=== PATIENT | female | born 1990 | race Caucasian/White ===

== ENCOUNTER 2020-04-20 09:53 | Observation (INO) ==
[2020-04-20 10:51] LABS: Creatinine Urine Random 22.5 mg/dl; Protein Creatinine Ratio Urine 0.3 (0-0.2); Total Protein Urine Random 6.9 mg/dl (0-11.9)
[2020-04-20 10:51] LABS: Basophils # (auto) 0.01 K/uL (0-0.2); Basophils % (auto) 0.1 %; Eosinophils # (auto) 0.14 K/uL (0-0.5); Eosinophils % (auto) 1.4 %; Hematocrit (blood only) 28.4 % (37-47); Hemoglobin 8.8 g/dL (12.0-16.0); Immature Granulocytes # (auto) 0.04 K/uL (0.00-0.02); Immature Granulocytes % (auto) 0.4 %; Lymphocytes # (auto) 1.27 K/uL (1.2-3.4); Lymphocytes % (auto) 12.5 %; Mean Corpuscular Hemoglobin 22.1 pg (25-34); Mean Corpuscular Volume 71.4 fL (80-100); Mean Platelet Volume 9.9 fL (7.4-10.4); Monocytes # (auto) 0.74 K/uL (0.11-0.59); Monocytes % (auto) 7.3 %; Neutrophils # (auto) 7.98 K/uL (1.4-6.5); Neutrophils % (auto) 78.3 %; Platelet Count 213 K/uL (130-400); RDW Coefficient of Variation 16.1 % (11.5-14.5); RDW Standard Deviation 42.6 fL (36.4-46.3); Red Blood Count 3.98 M/uL (4.2-5.4); White Blood Count 10.18 K/uL (4.8-10.8)
--- NOTE | 2020-04-20 11:04 | History & Physical Report ---
Date of Service April 20, 2020 Assessment & Plan (1) Chronic hypertension affecting : (2) Obesity affecting : (3) Headache: will plan labs and urine tests to further assess for superimposed preeclampsia. bps are elevated but not severe range. even the initial one's. offer oxycodone for butcher but pt declines. unclear picture at this time but will await labs to further characterize. couple aware. fhts categ 1. History of Present Illness Chief Complaint: sent from home with headache and elevated bps. Primary Care Provider: Shama Roper PA-C 30yo at 31 +wks kayley presents to L&D with above cc. She notes having BUTCHER and on and off right upper quad pain and then decided to take her home bp. She has a cuff. They were elevated in the 190/130 range per pt. When she called into the office with these details she was advised to come to L&D. She currently does not have ruq pain. No epig pain. BUTCHER still there like vice circumferentially around her head. She took tylenol already. She denies n/v. No rom, vb. No ctx. +FM. She is here with her partner. Her pnc is complicated by 1. CHTN, has been on labetalol for >1 yr and had recent dose adjustment last week by our providers and on monday by PCP. Now taking 300mg, 300mg and 200mg daily in doses. She notes the headaches have preceded the use of more labetalol. 2. Obesity, h/o gastric bypass 3. GBS + --trt in labor PNL RH Pos, ri, gbs pos urine OBH: g1 GYNH: nl paps, no stds Allergies Allergy/AdvReac Type Severity Reaction Status Date / Time amoxicillin Allergy Unknown gi upset Verified 04/14/20 09:43 clavulanic acid Allergy Unknown gi upset Verified 04/14/20 09:43 latex Allergy Unknown rash, Verified 04/14/20 09:43 Penicillins Allergy Unknown hives and Verified 04/14/20 09:43 vomiting Sulfa (Sulfonamide Allergy Unknown gi upset Verified 04/14/20 09:43 Antibiotics) throwing up Home Medications Home Medications Medication Instructions Recorded Confirmed Type ALBUTEROL HFA (VENTOLIN HFA) 2 - 4 puff INHALATION Q6H PRN #1 05/09/16 04/14/20 History inhaler prenat.vits,nataly,[id number]-przqd 1 tab PO DAILY 11/01/19 04/14/20 History aspirin 81 mg tablet,delayed 81 mg PO DAILY 12/03/19 04/14/20 History release docusate sodium PO PRN 03/03/20 04/14/20 History labetalol 100 mg tablet 200 mg PO TID 30 Days #180 tab 03/21/20 04/14/20 Rx Patient History Medical History (Updated 04/20/20 @ 11:03 by Diana Macdonald MD, FACOG) Encounter for anatomic survey Hx of varicella Hypertension Supervision of normal intrauterine in primigravida Surgical History (Updated 11/08/19 @ 15:45 by Minnie Ashley) History of Vaibhav-en-Y gastric bypass S/P cholecystectomy Family History (System 11/08/19 @ 15:45 by Minnie Ashley) Grandfather Thyroid disease Hypertension Father Hypertension Mother Hypertension Sister Hypertension Social History (System 11/08/19 @ 15:45 by Minnie Ashley) Smoking Status: Never smoker Hx Alcohol Use: No Hx Substance Use: No Preferred Language: Khmer Beliefs That Will Affect Care: None marital status: marital status details: Yomi Costa (30) [phone] Current Living Situation: Spouse Current Living Situation Comment: lives with spouse, 2 dogs, 1 cat, does not change litter current occupational status: employed current occupation: [employer] Review of Systems per hpi Physical Exam Constitutional: WD/WN, vitals as above not ill appearing Respiratory: normal respiratory effort, lungs clear to auscultation Cardiovascular: Rate/Rhythm: regular rate and regular rhythm Gastrointestinal (Abdomen): Percussion/Palpation: abdomen soft (gravid); abdomen nontender and no guarding No RUQ or epig tenderness Musculoskeletal: nt calves. no edema Neurologic: DTRs patellar +1, no clonus Psychiatric: A+Ox3, euthymic affect Eye Contact: good eye contact Genitourinary: OB Exam Monitor Tracing: + external FHT monitor used (135 mod variability reactive), + external uterine monitor used (no ctx), + category I and + normal FHT variability Results & Data ([place]) Vital Signs (Past 12 Hours) Vital Signs Pulse BP 04/20/20 10:47 88 140/85 04/20/20 10:37 87 149/95 H 04/20/20 10:27 84 151/97 H 04/20/20 10:17 88 151/101 H Coding Level of Care Code None Diagnoses Chronic hypertension affecting O10.919 Obesity affecting O99.210 Headache R51.9
[2020-04-20 11:09] LABS: Alanine Aminotransferase 24 U/L (12-78); Albumin Level 2.5 gm/dl (3.4-5.0); Aspartate Aminotransferase 19 U/L (15-37); BUN Creatinine Ratio 15.8 (10-20); Blood Urea Nitrogen 8 mg/dl (7-18); Calcium 8.6 mg/dl (8.5-10.1); Carbon Dioxide 24 mmol/L (21-32); Chloride 107 mmol/L (98-107); Est GFR (African American) 145.6; Est GFR (Non-African American) 125.6; Glucose 91 mg/dl (70-99); Potassium 3.7 mmol/L (3.5-5.1); Sodium 138 mmol/L (136-145)
[2020-04-20 11:10] LABS: Albumin Globulin Ratio 0.7 (0.9-2); Alkaline Phosphatase 103 U/L (45-117); Bilirubin,Total 0.5 mg/dl (0.2-1); Globulin 3.8 gm/dl (2.5-4.0); Total Protein 6.3 gm/dl (6.4-8.2)
[2020-04-20] MEDS ORDERED: Nursing to Pharmacy Communication SCH (11:45)
[2020-04-20] MEDS ORDERED: BETAMETH SOD PHOS/ACETATE IA 6 MG/ML IM STA (12:18)
[2020-04-20] MEDS ORDERED: METOCLOPRAMIDE HCL 10 MG TABLET PO STA (12:18)
--- NOTE | 2020-04-20 12:37 | Obstetrical Progress Note ---
Date of Service April 20, 2020 Assessment & Plan (1) Chronic hypertension affecting : (2) Obesity affecting : (3) Group beta Strep positive: (4) Anemia affecting , antepartum: (5) Headache: spoke to [facility] re: pt presentation. not clear to me or they how her BUTCHER plays into poss dx of superimposted preeclampsia. Bps not severe range. Urine protein needs to be further evaluated. Given BUTCHER, prudent to watch as observe and see if she stabilizes or worsens. Discussed with [facility] her adjustments of her meds thus far. Also discussed concern for need for delivery given her presentation thus far and they agree steroids would be indicated. So for now, will observe pt, get 24hr urine and give betameth now and in 24hr. watch BUTCHER and see how bp trend dose. FHTs categ 1 and so will plan fhts q shift and NST qd and prn. Patient and spouse aware and given chance to ask questions and deny further questions at this time. Patient is hungry and will feed and plan her current routine of labetalol. If able to be outpt after tomorrow, will need to set up consult with [facility] next week where growth u/s due and pt is agreeable. Of note, pt awaiting call to begin Iron IV as she is quite anemic and is supposed to start them wed. She is unable to tolerate po iron due to gastric bypass and is known to our hematologists for planned infusion. Admission and Anticipated Discharge Date Admission Date: April 20, 2020 Subjective pt notes still with headache but less severe. no other complaints. Review of Systems Review of Systems: per hpi Physical Exam Constitutional: WD/WN, vitals as above Genitourinary: OB Exam Monitor Tracing: + external FHT monitor used (135 mod variability), + external uterine monitor used (no ctx), + category I and + normal FHT variability Results & Data ([facility]) Vital Signs (Past 12 Hours) Vital Signs Temp Pulse Resp BP 04/20/20 11:30 18 04/20/20 11:00 18 04/20/20 10:47 88 140/85 04/20/20 10:37 87 149/95 H 04/20/20 10:27 84 151/97 H 04/20/20 10:17 88 151/101 H 04/20/20 10:10 98.2 F 20 PG Care Time/CCT Total # of Minutes Spent Total Time Spent: 60 Total Time Spent with Patient: Total time spent is greater than 50% in coordin ation of care (as documented) at patient's floor/unit and/or counseling patient: See orignal H&P notes and then called MFM and then came back and spoke to pt about all results. Coding Level of Care Code 82594 OBS Care - Level 3 Diagnoses Chronic hypertension affecting O10.919 Obesity affecting O99.210 Group beta Strep positive B95.1 Anemia affecting , antepartum O99.019 Headache R51.9 CPT Codes Misx Procedure Codes - 78428 NST: 74867 NST ([id number]) Time Spent (min) 60 [employer] Miscellaneous Codes Misx Procedure Codes 58197 NST
[2020-04-20] MEDS ORDERED: ALBUTEROL HFA 8 GM INHALER INH PRN (12:43)
[2020-04-20] MEDS ORDERED: LABETALOL HCL 300 MG TAB PO SCH (13:00)
[2020-04-20] MEDS: LABETALOL HCL 300 MG TAB PO SCH (13:05)
[2020-04-20] MEDS ORDERED: LABETALOL HCL 200 MG TAB PO SCH (21:00)
[2020-04-21] MEDS ORDERED: CALCIUM CARBONATE 500 MG CHEWABLE TAB PO PRN (03:37)
[2020-04-21] MEDS ORDERED: CALCIUM CARBONATE 500 MG CHEWABLE TAB ONE (03:44)
--- NOTE | 2020-04-21 07:22 | Obstetrical Progress Note ---
Date of Service April 21, 2020 Assessment & Plan (1) Headache: Rosa is a 30yo who is 31-6/7 WGA, notably complicated by cHTN on labetalol, obesity with h/o gastric bypass, and anemia who presented to the Labor and Delivery floor on 04/20/20 with significantly elevated BPs, BUTCHER, and RUQ pain, initially concerning for superimposed preeclampsia. Urine protein/Cr ratio subsequently returned borderline-diagnostic at 0.3, with other PIH labs WNL (with exception of known anemia). FHTs category I on arrival. Headache: Resolved - Clinically, patient presented with significant BUTCHER that was co-occurring with elevated BPs and RUQ pain in the range of 150s/90s - (2) Chronic hypertension affecting : (3) H/O gastric bypass: (4) : (5) Group beta Strep positive: Admission and Anticipated Discharge Date Admission Date: April 20, 2020 Subjective NAEO. Patient reports feeling well this morning and like her headache has nearly completely resolved. She wonders if this could be due to brand differences in the labetalol medications administered here versus what she uses at home (received same dosage as she does at home). No changes in vision. Abdominal pain has been resolved since arrival yesterday. Appetite is good, has been able to eat. No chest pain, palpitations, or shortness of breath. No leg pain or swelling. +FM. No contractions. No LOF. No vaginal bleeding. Review of Systems Review of Systems: As per HPI Physical Exam Constitutional: Well-appearing 30-year-old gravid woman who is lying bacck in her hospital bed, relaxed, and speaking in full sentences without difficulty. She is in NAD. Alert and oriented fully throughout our conversation. Respiratory: normal respiratory effort, lungs clear to auscultation Cardiovascular: RRR, no murmur, no edema No appreciable edema in the lower extremities. Homens negative. Gastrointestinal (Abdomen): Gravid abdomen. Nontender to palpation throughout all abdominal quadrants. Hager's negative. Results & Data ([facility]) Vital Signs (Past 12 Hours) Vital Signs Temp Pulse Pulse Pulse Resp BP BP 04/21/20 03:40 36.8 C 86 18 04/20/20 23:15 36.9 C 85 18 144/80 H 04/20/20 20:51 87 18 150/100 H 04/20/20 19:30 37.0 C 83 18 148/83 H BP 04/21/20 03:40 128/77 04/20/20 23:15 04/20/20 20:51 04/20/20 19:30
--- NOTE | 2020-04-21 08:05 | Obstetrical Progress Note ---
Date of Service April 21, 2020 Assessment & Plan (1) Chronic hypertension affecting : (2) Obesity affecting : (3) Headache: (4) Anemia affecting , antepartum: doing well overnight. bps normal. but last few not sitting up, will get sitting up in chair bp this am. will need nst this am. plan to repeat labs this am and 24hr urine complete at 950pm. next dose of roids around noon. if remains stable/labs/bp will likely d/c home and plan mfm consult next week. due to her distance to our office prefers to see mfm at [place] and we will work to arrange. at times her bp are labile. her headache improved and enc to try to use benadryl to help in future. Admission and Anticipated Discharge Date Admission Date: April 20, 2020 Subjective pt doing well. feels great. no headache. no visual change. eating, voiding, ambulating in room without problem. feels her swelling is less. she denies pain in abdomen, no ctx. no rom or vb. +FM. collecting 24hr urine Review of Systems Review of Systems: per hpi Physical Exam Constitutional: WD/WN, vitals as above Gastrointestinal (Abdomen): soft gravid nt, obese, no ruq or epigastric pain. Musculoskeletal: trace edema Neurologic: grossly normal Results & Data ([facility]) Vital Signs (Past 12 Hours) Vital Signs Temp Pulse Pulse Resp BP BP 04/21/20 03:40 98.2 F 86 18 128/77 04/20/20 23:15 98.4 F 85 18 144/80 H 04/20/20 20:51 87 18 150/100 H PG Care Time/CCT Total # of Minutes Spent Total Time Spent with Patient: Total time spent is greater than 50% in coordination of care (as documented) at patient's floor/unit and/or counseling patient: Coding Level of Care Code 80896 Subseq Obs Care Lvl 2 Diagnoses Chronic hypertension affecting O10.919 Obesity affecting O99.210 Headache R51.9 Anemia affecting , antepartum O99.019
[2020-04-21] MEDS: LABETALOL HCL 300 MG TAB PO SCH ×2 (08:20→12:36)
--- NOTE | 2020-04-21 08:56 | Communication Note ---
Date of Service: April 21, 2020 Patient was met this morning in her room along with Dr. Macdonald as part of signout / change-over. Pt is aware of BMTZ second dose today, finishing the 24hr urine collection process this morning, and ongoing BP monitoring throughout. The current plan per [facility] MFM and Dr. Macdonald is for discharge to outpatient management once those items are completed, assuming no major clinical changes. Outpatient follow up in OB office is arranged for tomorrow and IV Iron infusions are set to begin soon as well due to her anemia. She will be managed as cHTN with li perimposed mild preeclampsia based on the data collected thus far, including a spot pr/cr ratio of 0.3, though it is known that she has a mildly elevated baseline protein level in her urine. The patient achieved relief of her headache via benadryl and reglan as suggested by MFM at [facility] yesterday. The majority of her BP's have been in the mild-HTN range, which is her typical level given existing cHTN. Rare severe range BP's have been taken at times when she was anxious and/or positioned in a nonstandard way, and improved on repeat with patient seated [id number]. She has no other signs or symptoms of severe-level hypertensive disease at this time. The patient was also advised during the prior shift that she should establish in person with an M team, assuming she is able to continue outpatient care and maintain this , so that there would be a relationship in place should she require transfer to a tertiary care facility for an early delivery due to her medical conditions. She prefers [facility] due to the longer driving distance to [place]. She is aware that the recommendations so far have come from phone consultation with [facility] and that [facility]'s team may recommend different management; she is accepting of that possibility.
[2020-04-21] MEDS ORDERED: ASPIRIN 81 MG ECTAB PO SCH (09:00)
[2020-04-21] MEDS ORDERED: PRENATAL VITAMIN 1 TAB PO SCH (09:00)
[2020-04-21 10:17] LABS: Basophils # (auto) 0.01 K/uL (0-0.2); Basophils % (auto) 0.1 %; Eosinophils # (auto) 0.02 K/uL (0-0.5); Eosinophils % (auto) 0.1 %; Hematocrit (blood only) 28.9 % (37-47); Hemoglobin 8.5 g/dL (12.0-16.0); Immature Granulocytes # (auto) 0.06 K/uL (0.00-0.02); Immature Granulocytes % (auto) 0.4 %; Lymphocytes # (auto) 1.43 K/uL (1.2-3.4); Lymphocytes % (auto) 9.4 %; Mean Corpuscular Hemoglobin 21.3 pg (25-34); Mean Corpuscular Hgb Conc 29.4 g/dL (32-36); Mean Corpuscular Volume 72.4 fL (80-100); Mean Platelet Volume 10.4 fL (7.4-10.4); Monocytes # (auto) 1.19 K/uL (0.11-0.59); Monocytes % (auto) 7.8 %; Neutrophils # (auto) 12.49 K/uL (1.4-6.5); Neutrophils % (auto) 82.2 %; Platelet Count 239 K/uL (130-400); RDW Coefficient of Variation 16.3 % (11.5-14.5); RDW Standard Deviation 43.1 fL (36.4-46.3); Red Blood Count 3.99 M/uL (4.2-5.4)
[2020-04-21 10:50] LABS: RBC Morphology Unremarkable
[2020-04-21 10:51] LABS: Alanine Aminotransferase 22 U/L (12-78); Albumin Level 2.4 gm/dl (3.4-5.0); Aspartate Aminotransferase 13 U/L (15-37); BUN Creatinine Ratio 10.4 (10-20); Blood Urea Nitrogen 7 mg/dl (7-18); Calcium 8.8 mg/dl (8.5-10.1); Carbon Dioxide 22 mmol/L (21-32); Chloride 107 mmol/L (98-107); Creatinine Clr Calc Pharmacy 158.9 ml/min; Est GFR (African American) 135.5; Est GFR (Non-African American) 116.9; Glucose 131 mg/dl (70-99); Potassium 3.6 mmol/L (3.5-5.1); Sodium 137 mmol/L (136-145)
[2020-04-21 10:53] LABS: Albumin Globulin Ratio 0.6 (0.9-2); Alkaline Phosphatase 101 U/L (45-117); Bilirubin Direct < 0.1 mg/dl (0-0.2); Bilirubin,Total 0.3 mg/dl (0.2-1); Globulin 3.8 gm/dl (2.5-4.0); Total Protein 6.2 gm/dl (6.4-8.2)
[2020-04-21] MEDS ORDERED: BETAMETH SOD PHOS/ACETATE IA 6 MG/ML IM SCH (12:30)
[2020-04-21 13:20] LABS: Patient Weight 127.1 kg
[2020-04-21 13:45] LABS: Urine Creatinine 31.5 mg/dl
--- NOTE | 2020-04-21 14:09 | Discharge Summary ---
Date of Service April 21, 2020 Admission HPI Per Admitting Provider 30yo at 31 +wks kayley presents to L&D with BUTCHER and increased BP at home. Hospital Course (1) Chronic hypertension affecting : Patient admitted and d/w MFM at [facility] [place] [place]. Observed for 24 hours to allow collection of urine and BMTZ x2 doses to be administered. Labs reassuring. Urine protein 300mg = mild preeclampsia superimposed on her cHTN. BUTCHER was relieved by benadryl and reglan. BP stabilized in mild HTN range, typical for this patient. Patient feeling much better and D/C to home on HD#2 with outpatient f/u the next day. Coding Level of Care Code 64819 OBS Care - Discharge Diagnoses Chronic hypertension affecting O10.919
== END 2020-04-21 14:20 | disposition home or self-care (01) ==
LOC: OPB 09:53 → 4S1 09:53 → 4S2 17:44

== ENCOUNTER 2020-05-28 07:39 | Inpatient (IN) ==
[2020-05-28] MEDS ORDERED: OXYTOCIN 30 UNITS/500 ML BAG IV PRN ×3 (07:52→19:36)
[2020-05-28] MEDS ORDERED: ceFAZolin 1000MG 1,000 MG/7.5 ML SYR IV PRN (07:56)
[2020-05-28] MEDS ORDERED: PATIENT'S HEIGHT AND/OR WEIGHT NEEDED SCH (08:15)
[2020-05-28] MEDS ORDERED: ceFAZolin 2000MG 2,000 MG/15 ML SYR IV ONE (08:15)
[2020-05-28] MEDS: LACTATED RINGER'S 1,000 ML IV PRN ×6 (08:17→16:58)
--- NOTE | 2020-05-28 08:19 | History & Physical Report ---
Date of Service May 28, 2020 Assessment & Plan (1) Group beta Strep positive: (2) Obesity affecting : (3) Chronic hypertension affecting : Admission and Anticipated Discharge Date Admission Date: May 28, 2020 Planning induction for poorly controlled chtn. Labs pending. ancef for gbs +. Plan pit induction with arom as needed. epidural on demand. fetus overall reassuring. Anticipate . Pressures are good right now and no s/s of worsening disease at this point. History of Present Illness Chief Complaint: induction for chtn Primary Care Provider: Shama Roper PA-C Patient is a 30yowf at 37 1/7 weeks who presents to labor and delivery for induction for chtn. Patient's has been complicated by difficult to control chtn in her . Has needed several increases in her dosage of labetolol. Started on 100mg tid, now on 300mg/300mg/200mg. Hospitalized for control and got steroids. Had consult at [facility] for evaluation after that. Although they did not think she had preeclampsia at the time, they did recommend treating her as if she did with weekly labs, bp checks and nsts with growth ultrasounds. These have all been reassuring. Decision was made for induction after 37 weeks because the potential risks of blood pressure issues are likely outweighed by any risk of prematurity at this point. She is ammendable to this plan. Patient currently notes occasional dfufy and swelling, but no labor symptoms, no ruq pain. she is GBS positive so will treat. labs--A+/ab-/ri/rprnr/hepb-/hiv-/gc/ct-/ gtt x 2 nl/declined genetics/cf/sma. Allergies Allergy/AdvReac Type Severity Reaction Status Date / Time amoxicillin Allergy Unknown gi upset Verified 05/27/20 10:51 clavulanic acid Allergy Unknown gi upset Verified 05/27/20 10:51 latex Allergy Unknown rash, Verified 05/27/20 10:51 Penicillins Allergy Unknown hives and Verified 05/27/20 10:51 vomiting Sulfa (Sulfonamide Allergy Unknown gi upset Verified 05/27/20 10:51 Antibiotics) throwing up Home Medications Medication Instructions Recorded Confirmed Type ALBUTEROL HFA (VENTOLIN HFA) 2 - 4 puff INHALATION Q6H PRN #1 05/09/16 05/27/20 History inhaler prenat.vits,nataly,[id number]-[id number]-ycnqy 1 tab PO DAILY 11/01/19 05/27/20 History aspirin 81 mg tablet,delayed 81 mg PO DAILY 12/03/19 05/27/20 History release docusate sodium PO PRN 03/03/20 05/27/20 History labetalol 100 mg tablet See Rx Instructions PO DAILY tab 04/22/20 05/27/20 History Patient History Medical History (Updated 04/20/20 @ 12:36 by Diana Macdonald MD, FACOG) Encounter for anatomic survey Hx of varicella Hypertension Supervision of normal intrauterine in primigravida Surgical History (Updated 11/08/19 @ 15:45 by Minnie Ashley) History of Vaibhav-en-Y gastric bypass S/P cholecystectomy Family History (System 11/08/19 @ 15:45 by Minnie Ashley) Grandfather Thyroid disease Hypertension Father Hypertension Mother Hypertension Sister Hypertension Social History (System 11/08/19 @ 15:45 by Minnie Ashley) Smoking Status: Never smoker Hx Alcohol Use: No Hx Substance Use: No Preferred Language: Greek Beliefs That Will Affect Care: None marital status: marital status details: Yomi Costa (30) [phone] Current Living Situation: Spouse Current Living Situation Comment: lives with spouse, 2 dogs, 1 cat, does not change litter current occupational status: employed current occupation: [employer] Feels Safe at Home: Yes Assistive Devices: None OB History g1--present [employer]ITION EXPERT History noncontributory, no stds. Review of Systems All systems reviewed & are unremarkable except as noted in HPI & below Physical Exam Constitutional: WD/WN, vitals as above Gastrointestinal (Abdomen): obese , soft, nt, gravid Psychiatric: A+Ox3, euthymic affect Genitourinary: cx--3+/75/-2 toco--none efm--140s with mod varibility Results & Data ([facility]) Vital Signs (Past 12 Hours) Vital Signs Pulse BP 05/28/20 07:48 93 H 126/71 Coding Level of Care Code None Diagnoses Group beta Strep positive B95.1 Obesity affecting O99.210 Chronic hypertension affecting O10.919
[2020-05-28 08:20] LABS: Hematocrit (blood only) 37.2 % (37-47); Hemoglobin 11.6 g/dL (12.0-16.0); Mean Corpuscular Hemoglobin 25.2 pg (25-34); Mean Corpuscular Hgb Conc 31.2 g/dL (32-36); Mean Corpuscular Volume 80.7 fL (80-100); Mean Platelet Volume 10.4 fL (7.4-10.4); Platelet Count 224 K/uL (130-400); RDW Coefficient of Variation 24.9 % (11.5-14.5); RDW Standard Deviation 70.6 fL (36.4-46.3); Red Blood Count 4.61 M/uL (4.2-5.4); White Blood Count 11.84 K/uL (4.8-10.8)
[2020-05-28 08:41] LABS: Alanine Aminotransferase 29 U/L (12-78); Albumin Level 2.7 gm/dl (3.4-5.0); Aspartate Aminotransferase 17 U/L (15-37); BUN Creatinine Ratio 11.9 (10-20); Blood Urea Nitrogen 9 mg/dl (7-18); Calcium 8.9 mg/dl (8.5-10.1); Carbon Dioxide 22 mmol/L (21-32); Chloride 109 mmol/L (98-107); Est GFR (African American) 130.6; Est GFR (Non-African American) 112.7; Glucose 72 mg/dl (70-99); Potassium 3.6 mmol/L (3.5-5.1); Sodium 138 mmol/L (136-145)
[2020-05-28 08:43] LABS: Albumin Globulin Ratio 0.7 (0.9-2); Alkaline Phosphatase 147 U/L (45-117); Bilirubin,Total 0.3 mg/dl (0.2-1); Globulin 3.8 gm/dl (2.5-4.0); Total Protein 6.5 gm/dl (6.4-8.2)
[2020-05-28] MEDS ORDERED: BUPIVACAINE 0.25% 30 ML VIAL ONE (12:25)
[2020-05-28] MEDS ORDERED: SODIUM CHLORIDE 0.9% INJ 10 ML VIAL ONE (12:25)
[2020-05-28] MEDS ORDERED: ePHEDrine sulfate 50 MG/ML AMP ONE (12:25)
--- NOTE | 2020-05-28 12:25 | Labor Progress Brief Note ---
Date of Service May 28, 2020 Subjective noting some contractions, pit at 13 Assessment & Plan (1) Group beta Strep positive: (2) Chronic hypertension affecting : Admission and Anticipated Discharge Date Admission Date: May 28, 2020 arom. plans epidural. fetus category. continue current management. Physical Exam Constitutional: WD/WN, vitals as above Psychiatric: A+Ox3, euthymic affect Genitourinary: cx--4+/75/-2 arom--copious clear toco--difficult tracing, q2-4min, pit at 13 efm--120s with mod variability, accels to 150s, no decels Results & Data ([facility]) Vital Signs (Past 12 Hours) Vital Signs Temp Pulse Resp BP 05/28/20 12:04 80 18 135/82 05/28/20 11:00 18 05/28/20 10:37 67 136/85 05/28/20 10:00 18 05/28/20 09:33 74 18 121/82 05/28/20 08:45 36.9 C 93 H 20 126/71 05/28/20 07:48 93 H 126/71 Coding Level of Care Code None Diagnoses Group beta Strep positive B95.1 Chronic hypertension affecting O10.919
[2020-05-28] MEDS ORDERED: fentaNYL 2MCG/ML ROPIVACAINE 1.25MG/ML 100 ML BAG EPI ONE (12:26)
[2020-05-28] MEDS ORDERED: fentaNYL citrate 100 MCG/2 ML VIAL ONE (12:26)
[2020-05-28] MEDS ORDERED: ONDANSETRON INJ 2 MG/ML 2 ML VIAL IV PRN ×2 (12:54→18:43)
[2020-05-28] MEDS ORDERED: ePHEDrine sulfate 50 MG/ML AMP IV PRN ×2 (12:54→18:43)
[2020-05-28] MEDS ORDERED: fentaNYL 2MCG/ML ROPIVACAINE 1.25MG/ML 100 ML BAG EPI PRN (12:54)
[2020-05-28] MEDS ORDERED: NALOXONE HCL 0.4 MG/1 ML VIAL/CARP IV PRN (12:54)
[2020-05-28] MEDS ORDERED: diphenhydrAMINE 50 MG/ML VIAL IV PRN (12:54)
[2020-05-28] MEDS ORDERED: PROMETHAZINE HCL 25 MG in SODIUM CHLORIDE 0.9% 50 ML IV PRN (12:54)
[2020-05-28] MEDS ORDERED: NALOXONE HCL 1 MG in SODIUM CHLORIDE 0.9% 1000ML 1,000 ML IV PRN (12:54)
--- NOTE | 2020-05-28 12:57 | Anesthesiology Consultation ---
Date of Service May 28, 2020 Assessment & Plan ASA ASA3 Proposed Anesthesia Anesthesia Type: Labor Epidural Risk / Benefits Reviewed With: PT / POA / Parent / Guardian, Accepts Plan and Informed Consent Obtained History Height/Weight Height: 5 ft 3.5 in Weight: 128.82 kg Allergies Allergy/AdvReac Type Severity Reaction Status Date / Time amoxicillin Allergy Unknown gi upset Verified 05/27/20 10:51 clavulanic acid Allergy Unknown gi upset Verified 05/27/20 10:51 latex Allergy Unknown rash, Verified 05/27/20 10:51 Penicillins Allergy Unknown hives and Verified 05/27/20 10:51 vomiting Sulfa (Sulfonamide Allergy Unknown gi upset Verified 05/27/20 10:51 Antibiotics) throwing up Medications Home Medications Medication Instructions Recorded Confirmed Last Taken ALBUTEROL HFA (VENTOLIN HFA) 2 - 4 puff INHALATION Q6H PRN #1 05/09/16 05/27/20 Unknown inhaler prenat.vits,nataly,vya-eurs-kifkl 1 tab PO DAILY 11/01/19 05/27/20 05/27/20 aspirin 81 mg tablet,delayed 81 mg PO DAILY 12/03/19 05/27/20 05/27/20 release docusate sodium PO PRN 03/03/20 05/27/20 05/27/20 labetalol 100 mg tablet See Rx Instructions PO DAILY tab 04/22/20 05/27/20 05/27/20 Active Medications Generic Name Dose Route Start Last Admin Trade Name Freq PRN Reason Stop Dose Admin Lactated Ringer's 1,000 mls @ 125 mls/hr 05/28/20 07:52 05/28/20 12:43 Lr IV 05/30/20 07:51 999 mls/hr .Q8H PRN Administration L&D Protocol Protocol Oxytocin 30 units in 500 mls @ 9 mls/hr 05/28/20 07:52 05/28/20 10:36 Pitocin IV 05/30/20 07:51 0.54 units/hr .Q24H PRN 9 mls/hr Labor Induction/Augmentation Titration Protocol 0.54 UNITS/HR Ropivacaine 100 ml 05/28/20 12:54 05/28/20 13:16 Fentanyl 2mcg/Ml Ropivacaine 1.25mg/Ml 100 Ml Bag EPI 05/29/20 12:53 100 ml PRN PRN Administration Pain R/T Labor Protocol Past Medical History Medical History (Updated 04/20/20 @ 12:36 by Diana Macdonald MD, FACOG) Encounter for anatomic survey Hx of varicella Hypertension Supervision of normal intrauterine in primigravida Exercise / Class Metabolic Activity II 4-5 Yardwork/Stairs/Walk up hill Past Family History Family History (System 11/08/19 @ 15:45 by Minnie Ashley) Grandfather Thyroid disease Hypertension Father Hypertension Mother Hypertension Sister Hypertension Past Surgical History Surgical History (Updated 11/08/19 @ 15:45 by Minnie Ashley) History of Vaibhav-en-Y gastric bypass S/P cholecystectomy Past Anesthesia History No Hx of Anesthesia Complications and No Family Hx of Anesthesia Complications History of PONV No Hx of PONV and No Hx of Motion Sickness Social History Smoking Status: Never smoker Hx Alcohol Use: No Hx Substance Use: No Review of Systems denies fever/cough/ colds/ chest pain/ SOB/ TILA denies TILA Physical Exam Vital Signs Last Vital Signs Temp 36.9 C 05/28/20 08:45 Pulse 80 05/28/20 12:04 Resp 18 05/28/20 12:04 BP 135/82 05/28/20 12:04 ENMT Mouth: no TMJ abnormality and no dentition abnormality Thyromental Distance: > or= 3.5 Finger Breadths Mallampati Class: II Neck neck extension not limited Respiratory normal respiratory effort; no respiratory distress Auscultation: lungs clear to auscultation bilaterally Cardiovascular Rate/Rhythm: regular rate and regular rhythm Neurologic moves all extremities Psychiatric Orientation: alert and oriented x 3 Testing Laboratory Results 05/28/20 07:58 05/28/20 07:58
[2020-05-28] MEDS ORDERED: LABETALOL HCL 300 MG TAB PO SCH (14:00)
--- NOTE | 2020-05-28 14:02 | Labor Progress Brief Note ---
Date of Service May 28, 2020 Subjective Just got epidural and comfortable Assessment & Plan (1) Chronic hypertension affecting : Admission and Anticipated Discharge Date Admission Date: May 28, 2020 Continue to monitor closely. Monitor mvus by iupc to aim for >200. Fetus looking more reassuring. Continue to monitor closely. Physical Exam Constitutional: WD/WN, vitals as above Psychiatric: A+Ox3, euthymic affect Genitourinary: cx--4/75/-2 iupc and fse placed toco--q2-3min, pit was at 13, off now efm--variable /late with contractions and resolved with positon change, pit off, ivf, oxygen, mod variability Results & Data ([facility]) Vital Signs (Past 12 Hours) Vital Signs Temp Pulse Resp BP Pulse Ox 05/28/20 13:57 79 100 05/28/20 13:55 84 148/82 H 05/28/20 13:52 91 H 100 05/28/20 13:47 84 99 05/28/20 13:42 82 152/78 H 99 05/28/20 13:38 86 143/79 H 05/28/20 13:37 91 H 97 05/28/20 13:34 93 H 146/92 H 05/28/20 13:32 82 99 05/28/20 13:31 83 147/88 H 05/28/20 13:28 79 155/87 H 05/28/20 13:27 90 99 05/28/20 13:25 83 154/93 H 05/28/20 13:22 82 99 05/28/20 13:18 83 158/95 H 05/28/20 13:17 81 98 05/28/20 13:16 79 187/114 H 05/28/20 13:13 75 182/103 H 05/28/20 13:12 83 183/87 H 99 05/28/20 13:07 79 100 05/28/20 13:03 90 228/116 H 05/28/20 13:02 91 H 100 05/28/20 12:04 80 18 135/82 05/28/20 11:00 18 05/28/20 10:37 67 136/85 05/28/20 10:00 18 05/28/20 09:33 74 18 121/82 05/28/20 08:45 36.9 C 93 H 20 126/71 05/28/20 07:48 93 H 126/71 Coding Level of Care Code None Diagnoses Chronic hypertension affecting O10.919
--- NOTE | 2020-05-28 18:01 | Labor Progress Brief Note ---
Date of Service May 28, 2020 Subjective comfortable Assessment & Plan (1) Chronic hypertension affecting : Admission and Anticipated Discharge Date Admission Date: May 28, 2020 Have adequate mvus now. Fetus category two but reassuring. Not late. Continue current management. Have concern about lack of change since now have adequate mvus. Will continue to monitor closely. discussed if not making change with adequate mvus, will have to proceed with c/s. They express understanding. Physical Exam Constitutional: WD/WN, vitals as above Psychiatric: A+Ox3, euthymic affect Genitourinary: cx--no change--/-2 toco--q2-4min, pit at 5, MVus>200 since about 4:30 efm--130s with mod variability, spon accels, early/variable decels with contractions, resolved by end of contraction Results & Data ([facility]) Vital Signs (Past 12 Hours) Vital Signs Temp Pulse Resp BP Pulse Ox 05/28/20 17:56 80 131/76 05/28/20 17:52 92 H 99 05/28/20 17:47 87 96 05/28/20 17:42 84 99 05/28/20 17:40 77 131/72 05/28/20 17:39 86 128/69 05/28/20 17:37 76 98 05/28/20 17:32 80 97 05/28/20 17:27 76 99 05/28/20 17:22 76 99 05/28/20 17:17 76 99 05/28/20 17:12 92 H 148/81 H 100 05/28/20 17:07 84 96 05/28/20 17:02 78 97 05/28/20 16:57 78 143/85 H 99 05/28/20 16:52 84 99 05/28/20 16:47 78 100 05/28/20 16:42 78 100 05/28/20 16:41 73 148/71 H 05/28/20 16:37 76 99 05/28/20 16:32 81 100 05/28/20 16:28 83 137/80 05/28/20 16:27 82 99 05/28/20 16:26 99 H 94 05/28/20 16:22 79 100 05/28/20 16:17 75 99 05/28/20 16:13 87 91 11/19/20 16:12 95 H 97 20 16:11 77 135/73 05/28/20 16:07 78 98 05/28/20 16:02 87 99 05/28/20 15:57 84 100 05/28/20 15:56 83 125/66 05/28/20 15:52 79 98 19/20 15:47 79 99 19/20 15:42 81 99 20 15:41 80 128/71 05/28/20 15:37 84 97 05/28/20 15:32 79 98 19/20 15:27 80 98 05/28/20 15:26 80 129/67 05/28/20 15:22 85 98 05/28/20 15:17 85 99 05/28/20 15:12 80 97 05/28/20 15:11 80 124/67 05/28/20 15:07 82 98 05/28/20 15:05 36.8 C 16 05/28/20 15:02 84 98 20 14:58 83 128/71 20 14:57 81 100 19/20 14:52 78 100 05/28/20 14:47 88 100 05/28/20 14:42 81 100 05/28/20 14:41 80 128/66 20 14:37 80 100 05/28/20 14:32 82 100 05/28/20 14:27 78 100 05/28/20 14:26 81 133/77 05/28/20 14:22 81 100 05/28/20 14:17 81 100 05/28/20 14:12 89 100 05/28/20 14:11 79 137/75 19/20 14:07 84 100 05/28/20 14:02 80 100 19/20 13:57 79 100 19/20 13:55 84 148/82 H 19/20 13:52 91 H 100 19/20 13:47 84 99 05/28/20 13:42 82 152/78 H 99 19/20 13:38 86 143/79 H 19/20 13:37 91 H 97 19/20 13:34 93 H 146/92 H 19/20 13:32 82 99 19/20 13:31 83 147/88 H 05/28/20 13:28 79 155/87 H 05/28/20 13:27 90 99 05/28/20 13:25 83 154/93 H 05/28/20 13:22 82 99 05/28/20 13:18 83 158/95 H 05/28/20 13:17 81 98 05/28/20 13:16 79 187/114 H 05/28/20 13:13 75 182/103 H 05/28/20 13:12 83 183/87 H 99 05/28/20 13:07 79 100 05/28/20 13:03 90 228/116 H 05/28/20 13:02 91 H 100 05/28/20 12:04 80 18 135/82 05/28/20 11:00 18 05/28/20 10:37 67 136/85 05/28/20 10:00 18 05/28/20 09:33 74 18 121/82 05/28/20 08:45 36.9 C 93 H 20 126/71 05/28/20 07:48 93 H 126/71 Coding Level of Care Code None Diagnoses Chronic hypertension affecting O10.919
[2020-05-28] MEDS ORDERED: PROMETHAZINE HCL 12.5 MG in SODIUM CHLORIDE 0.9% 50 ML IV PRN (18:43)
[2020-05-28] MEDS ORDERED: HYDROmorphone INJ 2 MG/ML SYR/VIAL IV PRN (18:43)
[2020-05-28] MEDS ORDERED: ATROPINE SULFATE 0.1 MG/ML 10ML SYR IV PRN (18:43)
[2020-05-28] MEDS ORDERED: fentaNYL citrate 100 MCG/2 ML VIAL IV PRN (18:43)
[2020-05-28] MEDS ORDERED: NURSING L&D Epidural Breakthrough Pain Update ONE (18:49)
[2020-05-28] MEDS ORDERED: oxyCODONE/ACETAMINOPHEN 5mg/325mg TAB PO PRN (19:32)
[2020-05-28] MEDS ORDERED: IBUPROFEN 600 MG TAB PO PRN (19:32)
[2020-05-28] MEDS ORDERED: HYDROCORTISONE ACETATE 25 MG SUPP PR PRN (19:36)
[2020-05-28] MEDS ORDERED: DIPHTHERIA/TETANUS/PERTUSSIS 0.5 ML SYR/VIAL IM ONE (19:36)
[2020-05-28] MEDS ORDERED: BENZOCAINE 20% AER SPR 82.5 GM CAN EXT PRN (19:36)
[2020-05-28] MEDS ORDERED: bisacodyL 10 MG SUPP PR PRN (19:36)
[2020-05-28] MEDS ORDERED: SUPERCREAM 0.870% 15 GM JAR EXT PRN (19:36)
--- NOTE | 2020-05-28 19:36 | Delivery Summary ---
Vaginal Delivery Summary Date of Service May 28, 2020 Vaginal Delivery Summary Pre-operative Diagnosis: at 37 1/7 difficult to control chtn obesity Post-operative Diagnosis: same Procedure: quintero bulb pitocin induction arom iupc and fse placement first degree laceration and repair EBL: 300cc Anesthesia: epidural Procedure: The heart tones were noted to have marked variability and variables to 70s with contractions. The patient was checked and found to be c/c/+2-3. The patient was prepped for delivery. The patient pushed for 2 contractions to deliver a viable female infant in tray position. The nose and mouth were bulb suctioned on the perineum and the rest of the was then delivered without difficulty. The baby was vigorous. The nose and mouth were again bulb suctioned and the was placed in the maternal abdomen for drying and attention. Cord was clamped and cut at one minute of life. Cord blood and segment obtained. Placenta delivered spontaneous, intact with a three vessel cord. Cervix/sulci/rectum were intact. A first degree perineal laceration was repaired in the normal standard fashion. Hemostasis obtained with dilute pitocin and fundal massage. Apgars were 8/9. Mother and baby doing well at the end of the delivery.
[2020-05-28] MEDS ORDERED: LABETALOL HCL 100 MG TAB PO SCH (21:00)
--- NOTE | 2020-05-28 21:25 | Anesthesiology Progress Note ---
Date of Service May 28, 2020 Anesthesia Post Procedure Vital Signs Vital Signs: Temp Pulse Resp BP Pulse Ox 05/28/20 21:15 110 H 165/72 H 20 21:00 102 H 18 150/73 H 20 20:45 111 H 168/77 H 20 20:30 106 H 18 167/77 H 20 20:16 103 H 18 171/91 H 20 20:15 107 H 184/88 H 20 20:00 102 H 18 169/76 H 20 19:45 107 H 18 164/87 H 20 19:32 102 H 18 152/74 H 20 19:30 116 H 174/87 H 20 19:26 96 H 166/91 H 20 19:22 96 H 99 20 19:17 115 H 88 L 05/28/20 19:12 127 H 95 20 19:11 90 157/91 H 20 19:07 112 H 97 20 19:02 87 98 20 19:00 36.9 C 18 05/28/20 18:57 84 98 19/20 18:56 92 H 144/64 H 20 18:52 82 99 19/20 18:47 81 99 19/20 18:42 80 100 19/20 18:41 81 146/86 H 20 18:37 79 97 20 18:32 80 98 19/20 18:27 85 158/79 H 100 19/20 18:25 95 H 92 19/20 18:22 79 98 19/20 18:17 79 98 19/20 18:12 80 99 19/20 18:11 81 138/78 19/20 18:07 78 98 19/20 18:02 82 98 19/20 17:57 94 H 100 19/20 17:56 80 131/76 19/20 17:52 92 H 99 19/20 17:47 87 96 19/20 17:42 84 99 19/20 17:40 77 131/72 11/19/20 17:39 86 128/69 19/20 17:37 76 98 19/20 17:32 80 97 19/20 17:27 76 99 05/28/20 17:22 76 99 05/28/20 17:17 76 99 19/20 17:12 92 H 148/81 H 100 19/20 17:07 84 96 19/20 17:02 78 97 19/20 16:57 78 143/85 H 99 19/20 16:52 84 99 19/20 16:47 78 100 19/20 16:42 78 100 19/20 16:41 73 148/71 H 19/20 16:37 76 99 19/20 16:32 81 100 19/20 16:28 83 137/80 19/20 16:27 82 99 19/20 16:26 99 H 94 05/28/20 16:22 79 100 05/28/20 16:17 75 99 20 16:13 87 91 05/28/20 16:12 95 H 97 05/28/20 16:11 77 135/73 19/20 16:07 78 98 05/28/20 16:02 87 99 05/28/20 15:57 84 100 05/28/20 15:56 83 125/66 05/28/20 15:52 79 98 19/20 15:47 79 99 19/20 15:42 81 99 19/20 15:41 80 128/71 19/20 15:37 84 97 19/20 15:32 79 98 19/20 15:27 80 98 19/20 15:26 80 129/67 19/20 15:22 85 98 19/20 15:17 85 99 19/20 15:12 80 97 19/20 15:11 80 124/67 19/20 15:07 82 98 19/20 15:05 36.8 C 16 20 15:02 84 98 19/20 14:58 83 128/71 19/20 14:57 81 100 19/20 14:52 78 100 19/20 14:47 88 100 05/28/20 14:42 81 100 05/28/20 14:41 80 128/66 05/28/20 14:37 80 100 05/28/20 14:32 82 100 05/28/20 14:27 78 100 05/28/20 14:26 81 133/77 05/28/20 14:22 81 100 05/28/20 14:17 81 100 05/28/20 14:12 89 100 05/28/20 14:11 79 137/75 05/28/20 14:07 84 100 05/28/20 14:02 80 100 05/28/20 13:57 79 100 05/28/20 13:55 84 148/82 H 05/28/20 13:52 91 H 100 05/28/20 13:47 84 99 05/28/20 13:42 82 152/78 H 99 05/28/20 13:38 86 143/79 H 05/28/20 13:37 91 H 97 05/28/20 13:34 93 H 146/92 H 05/28/20 13:32 82 99 05/28/20 13:31 83 147/88 H 05/28/20 13:28 79 155/87 H 05/28/20 13:27 90 99 05/28/20 13:25 83 154/93 H 05/28/20 13:22 82 99 05/28/20 13:18 83 158/95 H 05/28/20 13:17 81 98 05/28/20 13:16 79 187/114 H 05/28/20 13:13 75 182/103 H 05/28/20 13:12 83 183/87 H 99 05/28/20 13:07 79 100 05/28/20 13:03 90 228/116 H 05/28/20 13:02 91 H 100 05/28/20 12:04 80 18 135/82 05/28/20 11:00 18 05/28/20 10:37 67 136/85 05/28/20 10:00 18 05/28/20 09:33 74 18 121/82 05/28/20 08:45 36.9 C 93 H 20 126/71 05/28/20 07:48 93 H 126/71 Pain Intensity Abdomen: Pain Intensity: 0 Transfer of Care Handoff Completed per policy Notes Mental Status: alert / awake / arousable and participated in evaluation Patient Amnestic to Procedure: Yes Nausea / Vomiting: adequately controlled Pain: adequately controlled Airway Patency, RR, SpO2: stable & adequate BP & HR: stable & adequate Hydration State: stable & adequate Anesthetic Complications: no major complications apparent and Pt Satisfied with anesthetic care
[2020-05-28] MEDS ORDERED: LABETALOL HCL 200 MG TAB PO SCH (22:00)
[2020-05-28] MEDS: ACETAMINOPHEN 325 MG TAB PO PRN (23:16)
--- NOTE | 2020-05-29 05:24 | Obstetrical Progress Note ---
Date of Service <Prabhjot Cowart MD - Last Filed: 05/29/20 06:36> May 29, 2020 Assessment & Plan <Prabhjot Cowart MD - Last Filed: 05/29/20 06:36> (1) Spontaneous vaginal delivery: Rosa is a 30 y/o female who is now PPD #1 following IOL in setting of cHTN, with subsequent at 37-1/7 weeks. - Feels well today. Eating well, voiding well, ambulating well. - Pain well controlled with ibuprofen 600mg Q4H PRN. - Routine PPD care -- continue with OOB and ambulation throughout today - cHTN: Difficult control throughout , but BPs nicely stable at 120- 130/80s throughout immediate period last night. Continue home labetalol regimen with BP monitoring while here. - After discharge will have [address] Sugar Lua <Prabhjot Cowart MD - Last Filed: 05/29/20 06:36> Rosa is a 30 y/o female who is now PPD #1 following IOL in setting of cHTN, with subsequent at 37-1/7 weeks. Reports feeling well overall this morning. Endorses some abdominal cramping with pain well managed on analgesics. Voiding without difficulty. Tolerating meals well and able to ambulate some. Some persistent lochia with some improvement this morning. Bottle feeding without difficulty. Review of Systems Denies fever, chills, sweats Denies shortness of breath, difficulty breathing, chest pain, palpitations, chest pressure. Denies breast pain. Denies dysuria. Denies headache or changes in vision. Physical Exam <Prabhjot Cowart MD - Last Filed: 05/29/20 06:36> General: Alert, oriented. No acute distress. Cardiac: Regular rate and rhythm, no murmurs/rubs/gallops. Respiratory: Clear to auscultation bilaterally a/p, no wheezes/rales/rhonchi. No increased work of breathing. Symmetrical chest rise. No respiratory distress. Abdomen: Soft, nontender, nondistended. Bowel sounds present. Uterus: Uterine fundus firm, palpable 1-2 cm below umbilicus. Lower Extremities: No lower extremity edema or swelling. No deep calf pain. Gustabo's negative bilaterally. Results & Data ([facility]) <Prabhjot Cowart MD - Last Filed: 05/29/20 06:36> Vital Signs (Past 12 Hours) Vital Signs Temp Pulse Pulse Pulse Resp BP BP 05/29/20 03:10 37.0 C 80 18 136/88 05/28/20 23:15 37.4 C 80 18 125/80 05/28/20 21:40 36.8 C 88 18 120/75 05/28/20 21:29 37.3 C 109 H 18 128/84 05/28/20 21:15 110 H 165/72 H 05/28/20 21:00 102 H 18 150/73 H 05/28/20 20:45 111 H 168/77 H 05/28/20 20:30 106 H 18 167/77 H 05/28/20 20:16 103 H 18 171/91 H 05/28/20 20:15 107 H 184/88 H 05/28/20 20:00 102 H 18 169/76 H 05/28/20 19:45 107 H 18 164/87 H 05/28/20 19:32 102 H 18 152/74 H 05/28/20 19:30 116 H 174/87 H 05/28/20 19:26 96 H 166/91 H 05/28/20 19:22 96 H 05/28/20 19:17 115 H 05/28/20 19:12 127 H 05/28/20 19:11 90 157/91 H 05/28/20 19:07 112 H 05/28/20 19:02 87 05/28/20 19:00 36.9 C 18 05/28/20 18:57 84 05/28/20 18:56 92 H 144/64 H 05/28/20 18:52 82 05/28/20 18:47 81 05/28/20 18:42 80 05/28/20 18:41 81 146/86 H 05/28/20 18:37 79 05/28/20 18:32 80 05/28/20 18:27 85 158/79 H 05/28/20 18:25 95 H 05/28/20 18:22 79 05/28/20 18:17 79 05/28/20 18:12 80 05/28/20 18:11 81 138/78 05/28/20 18:07 78 11/19/20 18:02 82 20 17:57 94 H 05/28/20 17:56 80 131/76 05/28/20 17:52 92 H 05/28/20 17:47 87 20 17:42 84 20 17:40 77 131/72 20 17:39 86 128/69 05/28/20 17:37 76 05/28/20 17:32 80 05/28/20 17:27 76 Pulse Ox 05/29/20 03:10 97 05/28/20 23:15 96 05/28/20 21:40 97 05/28/20 21:29 05/28/20 21:15 05/28/20 21:00 05/28/20 20:45 05/28/20 20:30 05/28/20 20:16 05/28/20 20:15 05/28/20 20:00 20 19:45 20 19:32 05/28/20 19:30 20 19:26 20 19:22 99 05/28/20 19:17 88 L 05/28/20 19:12 95 05/28/20 19:11 05/28/20 19:07 97 05/28/20 19:02 98 20 19:00 20 18:57 98 20 18:56 20 18:52 99 20 18:47 99 20 18:42 100 20 18:41 20 18:37 97 20 18:32 98 1920 18:27 100 20 18:25 92 20 18:22 98 20 18:17 98 20 18:12 99 20 18:11 05/28/20 18:07 98 20 18:02 98 20 17:57 100 20 17:56 20 17:52 99 20 17:47 96 1920 17:42 99 20 17:40 20 17:39 05/28/20 17:37 98 05/28/20 17:32 97 05/28/20 17:27 99 <Saida Wooten MD, FACOG - Last Filed: 05/29/20 07:26> Co-Signing Physician Notes Resident Physician Supervision Note: I interviewed and examined the patient. Discussed with Dr. Cowart and agree with findings and plan as documented in the note. Any exceptions or clarifications are listed here: Doing well. Blood pressures are good now, slighlty high in immediate pp period but has responded to meds. Continue current labetolol regimen. Monitor closely. Routine pp care. Documented By: Saida Wooten MD, FACOG Resident Activity Tracking <Prabhjot Cowart MD - Last Filed: 05/29/20 06:36> Resident Involvement: Resident Care Provided Care Provided: Adult Hospital Medicine and OB Delivery
[2020-05-29] MEDS: ACETAMINOPHEN 325 MG TAB PO PRN ×3 (05:27→21:05)
[2020-05-29 06:42] LABS: Hematocrit (blood only) 35.3 % (37-47); Hemoglobin 11.2 g/dL (12.0-16.0)
[2020-05-29] MEDS: DOCUSATE SODIUM 100 MG CAP PO SCH ×2 (09:00→21:07)
[2020-05-29] MEDS: PRENATAL VITAMIN 1 TAB PO SCH (09:00)
[2020-05-29] MEDS: LABETALOL HCL 100 MG TAB PO SCH ×2 (09:06→15:35)
[2020-05-29] MEDS ORDERED: bisacodyL 5 MG TABEC PO SCH (20:00)
[2020-05-29] MEDS ORDERED: LABETALOL HCL 200 MG TAB PO SCH (21:00)
--- NOTE | 2020-05-30 05:42 | Obstetrical Progress Note ---
Date of Service <Prabhjot Cowart MD - Last Filed: 05/30/20 06:50> May 30, 2020 Assessment & Plan <Prabhjot Cowart MD - Last Filed: 05/30/20 06:50> (1) Spontaneous vaginal delivery: Rosa is a 30 y/o female who is now PPD #2 following IOL in setting of cHTN, with subsequent at 37-1/7 weeks. - Feels well today. Eating well, voiding well, ambulating well. - Pain well controlled with ibuprofen 600mg Q4H PRN. - Routine PPD care -- continue with OOB and ambulation throughout today - cHTN: Difficult control throughout , but BPs nicely stable at 120- 130/80s. Continue home labetalol regimen with BP monitoring while here. Office f/u scheduled for middle of next week, can review medications at that time. Patient instructed on sxs of HoTN and to call the office with concerns as they arise. - After discharge will have [address] Sugar Lua <Prabhjot Cowart MD - Last Filed: 05/30/20 06:50> Rosa is a 30 y/o female who is now PPD #2 following IOL in setting of cHTN, with subsequent at 37-1/7 weeks. Reports feeling well overall this morning. Endorses minimal abdominal cramping pain well managed on analgesics. Voiding without difficulty. Tolerating meals well and able to ambulate some. Endorses passing gas. Some persistent lochia with some improvement this morning. Bottle feeding without difficulty. BPs stable in the 120-130s/80s throughout ladder half of yesterday and into this AM. ROS as below. Review of Systems Denies fever, chills, sweats Denies shortness of breath, difficulty breathing, chest pain, palpitations, chest pressure. Denies breast pain. Denies dysuria. Denies headache or changes in vision. Physical Exam <Prabhjot Cowart MD - Last Filed: 05/30/20 06:50> General: Alert, oriented. No acute distress. Cardiac: Regular rate and rhythm, no murmurs/rubs/gallops. Respiratory: Clear to auscultation bilaterally a/p, no wheezes/rales/rhonchi. No increased work of breathing. Symmetrical chest rise. No respiratory distress. Abdomen: Soft, nontender, nondistended. Bowel sounds present. Uterus: Uterine fundus firm, palpable 2 cm below umbilicus. Lower Extremities: No lower extremity edema or swelling. No deep calf pain. Gustabo's negative bilaterally. Results & Data ([facility]) <Prabhjot Cowart MD - Last Filed: 05/30/20 06:50> Vital Signs (Past 12 Hours) Vital Signs Temp Pulse Resp BP Pulse Ox 05/29/20 23:40 36.5 C 80 18 128/81 97 05/29/20 19:50 36.7 C 90 18 138/88 97 <Letty Starr MD - Last Filed: 05/30/20 07:26> Co-Signing Physician Notes Resident Physician Supervision Note: I interviewed and examined the patient. Discussed with Dr. Cowart and agree with findings and plan as documented in the note. Any exceptions or clarifications are listed here: PPD2, doing well and meeting all milestones. No s/s PET, BPs well controlled on home regimen w/o hypotension. Reviewed s/s of hypo and hypertension, PET signs to call. DC home today, BP check already arranged. Documented By: Letty Starr MD Resident Activity Tracking <Prabhjot Cowart MD - Last Filed: 05/30/20 06:50> Resident Involvement: Resident Care Provided Care Provided: Adult Hospital Medicine and OB Delivery
[2020-05-30] MEDS: PRENATAL VITAMIN 1 TAB PO SCH (08:28)
[2020-05-30] MEDS: DOCUSATE SODIUM 100 MG CAP PO SCH (08:28)
[2020-05-30] MEDS ORDERED: LABETALOL HCL 300 MG TAB PO SCH (09:00)
== END 2020-05-30 10:15 | disposition home or self-care (01) | DRG 807 ==
LOC: 4S1 07:39 → 4N 21:49